=== PATIENT | male | born 1985 | race Caucasian/White ===

== ENCOUNTER 2017-03-24 01:20 | Outpatient (CLI) | payer OTHER | END 2017-03-24 01:21 | disposition critical access hospital (66) | LOC: EMS 01:20 | PROVIDERS: ATTEND Surgery | DX: M25.512 Pain in left shoulder (principal); V48.5XXA Car driver injured in noncollision transport accident in traffic accident, initial encounter; Y92.414 Local residential or business street as the place of occurrence of the external cause | CPT/HCPCS: A0425; A0429 ==

== ENCOUNTER 2017-03-24 01:36 | Emergency (ER) | payer OTHER ==
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
--- NOTE | 2017-03-24 02:23 | CT Preliminary Report ---
Exam: CT HEAD W/O IMPRESSION: No acute or focal intracranial abnormality. [facility] SITE ID: [id number]
--- NOTE | 2017-03-24 02:25 | CT Preliminary Report ---
Exam: CT CERVICAL SPINE W/O IMPRESSION: No fracture is identified in the cervical spine. [facility] SITE ID: [id number]
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
[2017-03-24] MEDS ORDERED: ONDANSETRON ODT 4 MG TABLET TL STA (02:50)
[2017-03-24] MEDS ORDERED: ONDANSETRON ODT 4 MG TABLET ONE (02:51)
[2017-03-24 03:06] VITALS: BP 116/70
== END 2017-03-24 03:02 | disposition home or self-care (01) ==
LOC: EDBD → ED 01:36
DX: R51 Headache (principal); M54.2 Cervicalgia; V48.5XXA Car driver injured in noncollision transport accident in traffic accident, initial encounter; F10.129 Alcohol abuse with intoxication, unspecified
CPT/HCPCS: 70450; 72125; 99284; Q0162

== ENCOUNTER 2017-03-24 21:33 | Outpatient (CLI) | payer SELFPAY | END 2017-03-24 21:34 | disposition critical access hospital (66) | LOC: EMS 21:33 | PROVIDERS: ATTEND Surgery | DX: R40.20 Unspecified coma (principal) | CPT/HCPCS: A0425; A0427 ==

== ENCOUNTER 2017-03-24 21:50 | Emergency (ER) | payer SELFPAY ==
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
[2017-03-24 23:08] VITALS: BP 126/88
== END 2017-03-24 23:08 | disposition home or self-care (01) ==
LOC: EDUNIT# → ED 21:50
DX: T40.2X1A Poisoning by other opioids, accidental (unintentional), initial encounter (principal); G89.29 Other chronic pain; M25.562 Pain in left knee
CPT/HCPCS: 99283; 99284

== ENCOUNTER 2017-03-25 12:01 | Outpatient (CLI) | payer SELFPAY | END 2017-03-25 12:02 | disposition EMS.NT | LOC: EMS 12:01 | PROVIDERS: ATTEND Surgery ==